=== PATIENT | male | born 1975 | race Caucasian/White ===

== ENCOUNTER 2025-02-21 00:37 | Emergency (ER) | payer MEDICAID, OTHER ==
[~2025-02-21] VITALS: Ht 165.1 cm; Wt 74.8 kg
[2025-02-21] MEDS ORDERED: ONDANSETRON HCL/PF 4 MG/2 ML VIAL ONE (01:21)
[2025-02-21] MEDS ORDERED: MORPHINE SULFATE INJ 4 MG/ML DISP.SYRIN ONE (01:22)
[2025-02-21] MEDS: IV NS 0.9% 1,000 ML BAG IV ONE (01:32)
[2025-02-21] MEDS: MORPHINE SULFATE INJ 2 MG/ML DISP.SYRIN IV ONE (01:32)
[2025-02-21] MEDS: ONDANSETRON HCL/PF 4 MG/2 ML VIAL IVP ONE (01:32)
[2025-02-21 01:38] LABS: PLATELET COUNT (AUTO) 367 K/uL (150-450); RED BLOOD CELL COUNT(AUTO) 4.70 MIL/uL (4.5-6.0); RED CELL DISTRIBUTION WIDTH 13.8 % (11.5-15.0); WHITE BLOOD COUNT (AUTO) 7.8 K/uL (4.3-11.0)
[2025-02-21 01:40] LABS: APPEARANCE,URINE CLEAR (CLEAR); BLOOD, URINE NEGATIVE Ery/uL (NEGATIVE); LEUKOCYTE ESTERASE ,URINE NEGATIVE (NEGATIVE); NITRITE, URINE NEGATIVE (NEGATIVE); UGLUCOSE NEGATIVE (NEGATIVE)
[2025-02-21 01:53] LABS: INR 0.99 (0.91-1.10)
[2025-02-21 02:09] LABS: ASPARTATE AMINOTRANSFERASE 19.0 U/L (15-37); CALCIUM, SERUM 9.0 mg/dL (8.5-10.1); CREATININE 0.8 mg/dL (0.6-1.3); SODIUM SERUM 140.0 mmol/L (136-145); TOTAL PROTEIN, SERUM 7.0 g/dL (6.4-8.2); UREA NITROGEN, BLOOD 17.0 mg/dL (7-18)
[2025-02-21] MEDS ORDERED: CT SWABBABLE VALVE TRANS SET 1 EA INFUS.SET MC ONE (02:25)
[2025-02-21] MEDS ORDERED: IOHEXOL-300 100 ML VIAL IV ONE (02:25)
[2025-02-21] MEDS ORDERED: IV NS 0.9% 250 ML IV ONE (02:25)
[2025-02-21 05:55] VITALS: BP 115/70; TEMP 98; O2SAT 99
== END 2025-02-21 05:56 | disposition home or self-care (01) ==
LOC: ER 01:05
DX: K76.9 Liver disease, unspecified (principal); R10.9 Unspecified abdominal pain; R10.32 Left lower quadrant pain; R10.31 Right lower quadrant pain; Z87.442 Personal history of urinary calculi; Z60.2 Problems related to living alone
CPT/HCPCS: 99285; 74176; 96374; 96361; 96375; 74177; 85025; 80048; 83690; 80076; 81003; 36415; 85730; J2270; J2405; J7030; J7050; Q9967